=== PATIENT | female | born 1995 | race African-American/Black ===

== ENCOUNTER 2017-07-20 18:17 | Emergency (ER) | payer OTHER ==
--- NOTE | 2017-07-20 20:15 | RADIOLOGY REPORT (SQ) ---
EXAM DESCRIPTION: CHEST PA/LAT COMPLETED DATE/TIME: 07/20/2017 8:08 pm REASON FOR STUDY: cough/fever COMPARISON: None. EXAM PARAMETERS: NUMBER OF VIEWS: two views TECHNIQUE: Digital Frontal and Lateral radiographic views of the chest acquired. RADIATION DOSE: NA LIMITATIONS: none FINDINGS: LUNGS AND PLEURA: No opacities, masses or pneumothorax. No pleural effusion. MEDIASTINUM AND HILAR STRUCTURES: No masses or contour abnormalities. HEART AND VASCULAR STRUCTURES: Heart normal size. No evidence for failure. BONES: No acute findings. HARDWARE: None in the chest. OTHER: No other significant finding. IMPRESSION: NO SIGNIFICANT RADIOGRAPHIC FINDING IN THE CHEST. TECHNICAL DOCUMENTATION: JOB ID: [id number] [email or web address]- All Rights Reserved
[2017-07-20] MEDS ORDERED: DEXAMETHASONE SOD PHOS INJ 10 MG/1 ML VIAL IM ONE (22:35)
[2017-07-20] MEDS ORDERED: CEFTRIAXONE INJ 1000 MG VIAL IM ONE (22:35)
--- NOTE | 2017-07-20 22:38 | ER Document Report ---
ED Fever - General Chief Complaint: Fever Stated Complaint: FEVER,SORE THROAT,HEADACHE Time Seen by Provider: 07/20/17 18:55 Mode of Arrival: Ambulatory Information source: Patient, Relative Notes: Patient is a 22-year-old black female comes emergency room with a complaint of having a temperature of 103.5. Patient states she returned from [facility] 2 days ago where she was exposed people coughing on the bus. She spiked her fever and she went to the [facility] yesterday for a checkup. They could not find anything according to patient all was negative and sent her home on Tylenol Tessalon Perles and Mucinex. Patient states she is actually progressively getting worse 7 difficulty swallowing she is having uncontrolled cough congestion bilateral ear pain with left being greater than right. And runny nose. TRAVEL OUTSIDE OF THE [place] IN LAST 30 DAYS: No - HPI Onset: Other - 3 days Quality of pain: No pain Severity: Moderate Pain Level: 3 Context: Congestion, Cough, Nasal drainage Associated symptoms: Chills, Nonproductive cough, Earache, Fever, Headache, Nausea, Rhinnorhea, Sinus pain/drainage, Sweating Similar symptoms previously: Yes Recently seen / treated by doctor: Yes - Related Data Allergies/Adverse Reactions: No Known Allergies Allergy (Verified 07/20/17 18:19) Past Medical History - General Information source: Patient, Relative Last Menstrual Period: Today - Social History Smoking Status: Current Some Day Smoker Chew tobacco use (# tins/day): No Smoking Education Provided: No Frequency of alcohol use: Occasional Drug Abuse: None Family History: Reviewed & Not Pertinent Patient has suicidal ideation: No Patient has homicidal ideation: No Renal/ Medical History: Denies: Hx Peritoneal Dialysis Past Surgical History: Reports: Hx Section - Immunizations Hx Diphtheria, Pertussis, Tetanus Vaccination: Yes Review of Systems - Review of Systems Constitutional: Fever, Malaise, Weakness EENT: Ear pain, Nose congestion, Nose discharge, Sinus pressure, Sinus discharge , Throat pain, Difficulty swallowing Cardiovascular: No symptoms reported Respiratory: See HPI, Cough Gastrointestinal: No symptoms reported Genitourinary: No symptoms reported Female Genitourinary: No symptoms reported Musculoskeletal: No symptoms reported Skin: No symptoms reported Hematologic/Lymphatic: No symptoms reported Neurological/Psychological: No symptoms reported -: Yes All other systems reviewed and negative Physical Exam - Vital signs Vitals: Temp Pulse Resp BP Pulse Ox 100.0 F 103 H 20 129/72 H 99 07/20/17 18:40 07/20/17 18:40 07/20/17 18:40 07/20/17 18:40 07/20/17 18:40 Interpretation: Tachycardic - General General appearance: Alert, Other - Ill-appearing - HEENT Head: Normocephalic, Atraumatic Eyes: Normal External canal: Normal Tympanic membrane: Bulging Sinus: Maxillary, Tenderness, Other - Examination patient's head and upper airway showed nasal mucosa to be moderately erythematous and edematous with rhinorrhea noted in bilateral nares. Also note bilateral nasal congestion. Examination of bilateral TMs show them to be bulging with no fluid levels. External canals have some mild cerumen but TMs are visualized well. Patient also displays some mild maxillary sinus tenderness to palpation bilaterally frontal sinuses are negative at this time. Posterior pharynx shows moderate amount of erythema throughout with uvula midline and erythema. There is some mild exudate on the right side of tonsil the left is enlarged slightly but no exudate. The posterior pharynx also displays a large amount of yellowish green kind of drainage. Again the airways patent though. Nasal: Purulent discharge, Swelling Mouth/Lips: Normal Mucous membranes: Normal, Moist Pharynx: Other - See above. No: Normal, Blood in hypopharynx, Erythema, Exudate , Peritonsillar abscess, Post nasal drainage, Retropharyngeal abscess, Tonsillar hypertrophy, Uvular edema, Potential airway comprom. Neck: Other - See above. No: Normal, Anterior cervical chain, Posterior cervical chain, Brudzinski, Carotid bruit, Kernig's, Lymphadenopathy, Meningismus, Neck mass, Shotty nodes, Subcutaneous emphysema, Supple, Thyroid nodule, Thyromegally - Respiratory Respiratory status: No respiratory distress Chest status: Nontender Breath sounds: Normal. No: Decreased air movement, Nonproductive cough, Productive cough, Rales, Rhonchi, Stridor, Wheezing, Other - Cardiovascular Rhythm: Tachycardia Murmur: No - Abdominal Inspection: Normal Distension: No distension, Other Tenderness: Nontender Organomegaly: No organomegaly - Skin Skin Temperature: Warm Skin Moisture: Dry Skin Color: Normal, [place] Course - Vital Signs Vital signs: Temp Pulse Resp BP Pulse Ox 100.0 F 103 H 20 129/72 H 99 07/20/17 18:40 07/20/17 18:40 07/20/17 18:40 07/20/17 18:40 07/20/17 18:40 - Diagnostic Test Radiology reviewed: Reports reviewed - Negative chest x-ray - Transfer of Care Notes: 07/20/17 22:49 At this time patient's symptoms seem to worsen slightly do believe there is a pharyngitis minimally possibly a sinusitis makes him with it. We will place her on a steroid taper and some Sudafed and some antibiotics and have patient return to ER for recheck. Discharge - Discharge Clinical Impression: Pharyngitis, Fever Sinusitis Qualifiers: Sinusitis location: maxillary Chronicity: acute Recurrence: non-recurrent Qualified Code(s): J01.00 - Acute maxillary sinusitis, unspecified Disposition: HOME, SELF-CARE Instructions: Acetaminophen, Sore Throat ([facility]), Sinusitis ([facility]) Additional Instructions: Home rest. Medications prescribed. Tylenol alternating with Motrin every 4 hours throughout the night. Push fluids but avoid milk and dairy. Use nasal saline to keep the nose moist and secretions thin. Should you have any worsening symptoms or have any concerns return to ER for recheck. Prescriptions: Acetaminophen with Codeine [Tylenol #3 Tablet] 1 each PO Q4HP PRN #15 tablet PRN Reason: Acetaminophen with Codeine [Tylenol #3 Tablet] 1 each PO Q4HP PRN #15 tablet PRN Reason: Amox Tr/Potassium Clavulanate [Augmentin 875-125 Tablet] 1 tab PO BID 10 Days tablet Amoxicillin/Potassium Clav [Augmentin 875-125 Tablet] 1 each PO BID #20 tablet Prednisone [Sterapred Ds] 10 mg PO ASDIR PRN #1 tab.ds.pk PRN Reason: Pseudoephedrine HCl [Sudafed 12-Hour] 120 mg PO BID #20 tablet.er Referrals: SINDI MUIR DO [Primary Care Provider] - Follow up as needed
[2017-07-20 23:27] VITALS: BP 113/68
== END 2017-07-20 23:28 | disposition home or self-care (01) ==
LOC: ER 18:17
DX: J01.00 Acute maxillary sinusitis, unspecified (principal); J02.9 Acute pharyngitis, unspecified; R50.9 Fever, unspecified; R51 Headache; R05 Cough; R09.81 Nasal congestion; H92.03 Otalgia, bilateral; R09.89 Other specified symptoms and signs involving the circulatory and respiratory systems; F17.200 Nicotine dependence, unspecified, uncomplicated
CPT/HCPCS: 99283; 96372; 36415; 87070; 87880; 86308; 87804; 71020; J0696; J1100

== ENCOUNTER 2017-09-17 08:24 | Emergency (ER) | payer OTHER ==
--- NOTE | 2017-09-17 08:42 | ER Document Report ---
ED GI/ - General Chief Complaint: Abdominal Cramping Stated Complaint: STOMACH CRAMPING Time Seen by Provider: 09/17/17 08:41 Mode of Arrival: Ambulatory Information source: Patient Notes: Patient is a 22-year-old female who presents to the ER today for 2 months of intermittent abdominal cramping like she is "going to start my period" but then she does not. Patient has missed her menstrual cycle 1. Her last menstrual cycle being in July. Patient admits to feeling nauseated especially after eating food. Patient is not on any control. She is concerned she is today. She denies any vaginal bleeding or abnormal vaginal discharge. TRAVEL OUTSIDE OF THE [place] IN LAST 30 DAYS: No - Related Data Allergies/Adverse Reactions: No Known Allergies Allergy (Verified 07/20/17 18:19) Past Medical History - General Information source: Patient - Social History Smoking Status: Never Smoker Family History: Reviewed & Not Pertinent Renal/ Medical History: Denies: Hx Peritoneal Dialysis Past Surgical History: Reports: Hx Section - Immunizations Hx Diphtheria, Pertussis, Tetanus Vaccination: Yes Review of Systems - Review of Systems Constitutional: No symptoms reported EENT: No symptoms reported Cardiovascular: No symptoms reported Respiratory: No symptoms reported Gastrointestinal: See HPI Genitourinary: No symptoms reported Female Genitourinary: See HPI Musculoskeletal: No symptoms reported Skin: No symptoms reported Hematologic/Lymphatic: No symptoms reported Neurological/Psychological: No symptoms reported Physical Exam - Vital signs Vitals: Temp Pulse Resp BP Pulse Ox 98.6 F 76 16 116/71 94 09/17/17 08:33 09/17/17 08:33 09/17/17 08:33 09/17/17 08:33 09/17/17 08:33 - Notes Notes: PHYSICAL EXAMINATION: GENERAL: Well-appearing and in no acute distress. HEAD: Atraumatic, normocephalic. EYES: Pupils equal round and reactive to light, extraocular movements intact, sclera anicteric, conjunctiva are normal. ENT: ear canals without erythema or foreign body, TMs pearly turner with good bony landmarks, nares patent, oropharynx clear without exudates. Moist mucous membranes. NECK: Normal range of motion, supple without lymphadenopathy LUNGS: CTAB and equal. No wheezes rales or rhonchi. HEART: Regular rate and rhythm without murmurs ABDOMEN: Soft, no tenderness. No guarding, no rebound BACK: no vertebral tenderness, normal ROM GI/: no CVA tenderness EXTREMITIES: Normal range of motion, no pitting edema. No cyanosis. NEUROLOGICAL: Cranial nerves grossly intact. Normal sensory/motor exams. PSYCH: Normal mood, normal affect. SKIN: Warm, Dry, normal turgor, no rashes or lesions noted Course - Re-evaluation Re-evalutation: 09/17/17 11:02 test negative today through the serum. Lab work unremarkable today, urinalysis normal. - Vital Signs Vital signs: Temp Pulse Resp BP Pulse Ox 98.6 F 76 16 116/71 94 09/17/17 08:33 09/17/17 08:33 09/17/17 08:33 09/17/17 08:33 09/17/17 08:33 - Laboratory Result Diagrams: 09/17/17 08:55 09/17/17 08:55 Laboratory results interpreted by me: 09/17/17 09/17/17 08:55 10:25 Chloride 110 H Carbon Dioxide 20 L Lipase 318.3 H Urine Urobilinogen 2.0 H Discharge - Discharge Clinical Impression: Abdominal cramping, Nausea Condition: Stable Disposition: HOME, SELF-CARE Additional Instructions: Return immediately for any new or worsening symptoms. Follow up with primary care provider, call tomorrow to make followup appointment. Prescriptions: Ondansetron [Zofran Odt 4 mg Tablet] 1 - 2 tab PO Q4H PRN #30 tab.rapdis PRN Reason: For Nausea/Vomiting Forms: Return to Work
[2017-09-17 09:20] LABS: ABSOLUTE EOSINOPHILS # (AUTO) 0.1 10^3/uL (0.0-0.6); ABSOLUTE LYMPHOCYTES (AUTO) 2.2 10^3/uL (0.5-4.7); ABSOLUTE MONOCYTES (AUTO) 0.5 10^3/uL (0.1-1.4); BASOPHILS % (AUTO) 0.3 % (0-2); EOSINOPHILS % (AUTO) 1.9 % (0-6); HEMATOCRIT 39.3 % (36.0-47.0); HEMOGLOBIN 13.4 g/dL (12.0-15.5); LYMPHOCYTES % (AUTO) 37.6 % (13-45); MEAN CORPUSCULAR HEMOGLOBIN 28.9 pg (27.0-33.4); MEAN CORPUSCULAR VOLUME 85 fl (80-97); MONOCYTES % (AUTO) 8.2 % (3-13); PLATELET COUNT 237 10^3/uL (150-450); RED BLOOD COUNT 4.62 10^6/uL (3.72-5.28); RED CELL DISTRIBUTION WIDTH 13.7 % (11.5-14.0); TOTAL CELLS COUNTED % (AUTO) 100 %; WHITE BLOOD COUNT 5.8 10^3/uL (4.0-10.5)
[2017-09-17 09:42] LABS: ALANINE AMINOTRANSFERASE 28 U/L (9-52); ALBUMIN 3.9 g/dL (3.5-5.0); ALKALINE PHOSPHATASE 50 U/L (38-126); ANION GAP 10 (5-19); ASPARTATE AMINO TRANSFERASE 22 U/L (14-36); BILIRUBIN,DIRECT 0.2 mg/dL (0.0-0.4); BILIRUBIN,TOTAL 0.2 mg/dL (0.2-1.3); BLOOD UREA NITROGEN 16 mg/dL (7-20); CALCIUM 9.5 mg/dL (8.4-10.2); CARBON DIOXIDE 20 mmol/L (22-30); CHLORIDE 110 mmol/L (98-107); GLUCOSE 102 mg/dL (75-110); LIPASE 318.3 U/L (23-300); TOTAL PROTEIN 6.8 g/dL (6.3-8.2)
[2017-09-17 10:59] LABS: APPEARANCE,URINE SLIGHTLY-CLOUDY; BILIRUBIN,URINE NEGATIVE (NEGATIVE); COLOR,URINE YELLOW; GLUCOSE, URINE NEGATIVE (NEGATIVE); KETONES,URINE NEGATIVE (NEGATIVE); LEUKOCYTE ESTERASE,URINE NEGATIVE (NEGATIVE); NITRITE,URINE NEGATIVE (NEGATIVE); PROTEIN,URINE NEGATIVE (NEGATIVE); URINE SPECIFIC GRAVITY 1.027
[2017-09-17 11:16] VITALS: BP 110/70
== END 2017-09-17 11:15 | disposition home or self-care (01) ==
LOC: ER 08:24
DX: Z32.02 Encounter for pregnancy test, result negative (principal); R10.9 Unspecified abdominal pain; R11.0 Nausea
CPT/HCPCS: 36415; 80053; 81001; 83690; 84703; 85025; 99284

== ENCOUNTER 2017-10-25 18:37 | Emergency (ER) | payer OTHER ==
[2017-10-25] MEDS ORDERED: LORATADINE 10 MG TABLET PO ONE (21:01)
[2017-10-25] MEDS ORDERED: IBUPROFEN 800 MG TABLET PO ONE (21:01)
[2017-10-25] MEDS ORDERED: PSEUDOEPHEDRINE HCL 30 MG TABLET PO ONE (21:01)
[2017-10-25] MEDS ORDERED: GUAIFENESIN 600 MG TABLET.SA PO ONE (21:01)
[2017-10-25] MEDS ORDERED: PROCHLORPERAZINE MALEATE 10 MG TABLET PO ONE (21:01)
--- NOTE | 2017-10-25 21:06 | ER Document Report ---
HPI - HPI Patient complains to provider of: Cough cold congestion Onset: Other - 4 days Onset/Duration: Gradual, Persistent Quality of pain: Achy, Fullness, Pressure Pain Level: 4 Associated Symptoms: Body/muscle aches, Headache, Rhinnorhea, Sinus pain/ drainage Exacerbated by: Denies Relieved by: Denies Similar symptoms previously: Yes Recently seen / treated by doctor: No - ROS ROS below otherwise negative: Yes - CONSTITUTIONAL Constitutional: DENIES: Fever, Chills - EENT EENT: REPORTS: Nasal Drainage-Purulent, Congestion. DENIES: Sore Throat, Ear Pain, Eye problems - NEURO Neurology: REPORTS: Headache - Hx migraines. DENIES: Weakness, Vision blurred, Dizzinesss / Vertigo - CARDIOVASCULAR Cardiovascular: DENIES: Chest pain - RESPIRATORY Respiratory: REPORTS: Coughing. DENIES: Trouble Breathing - GASTROINTESTINAL Gastrointestinal: DENIES: Abdominal Pain, Black / Bloody Stools - URINARY Urinary: DENIES: Dysuria, Urgency, Frequency - REPRODUCTIVE Reproductive: DENIES: : - MUSCULOSKELETAL Musculoskeletal: DENIES: Extremity pain - DERM Skin Color: Normal Skin Problems: None Past Medical History - General Information source: Patient - Social History Smoking Status: Current Every Day Smoker Cigarette use (# per day): Yes Smoking Education Provided: Yes - Or minutes Family History: Reviewed & Not Pertinent Patient has suicidal ideation: No Patient has homicidal ideation: No - Past Medical History Cardiac Medical History: Reports: None Pulmonary Medical History: Reports: None EENT Medical History: Reports: None Neurological Medical History: Reports: None Endocrine Medical History: Reports: None Renal/ Medical History: Reports: None Malignancy Medical History: Reports: None GI Medical History: Reports: None Musculoskeltal Medical History: Reports None Skin Medical History: Reports None Psychiatric Medical History: Reports: None Traumatic Medical History: Reports: None Infectious Medical History: Reports: None Past Surgical History: Reports: Hx Section - Immunizations Hx Diphtheria, Pertussis, Tetanus Vaccination: Yes Vertical Provider Document - CONSTITUTIONAL Agree With Documented VS: Yes - INFECTION CONTROL TRAVEL OUTSIDE OF THE [place] IN LAST 30 DAYS: No - HEENT HEENT: Atraumatic, Normocephalic, PERRLA. negative: Normal ENT Exam - . Nasal drainage postnasal drip, Pharyngeal Exudate, Pharyngeal Tenderness, Pharyngeal Erythema, Tympanic Membrane Red, Tympanic Membrane Bulging - NECK Neck: Normal Inspection, Supple - RESPIRATORY Respiratory: Breath Sounds Normal, No Respiratory Distress, Chest Non-Tender - CARDIOVASCULAR Cardiovascular: Regular Rate, Regular Rhythm, No Murmur - MUSCULOSKELETAL/EXTREMETIES Musculoskeletal/Extremeties: MAEW, FROM, Non-Tender - NEURO Level of Consciousness: Awake, Alert, Appropriate - DERM Integumentary: Warm, Dry, No Rash Course - Vital Signs Vital signs: Temp Pulse Resp BP Pulse Ox 98.8 F 81 18 112/76 100 10/25/17 19:10 10/25/17 19:10 10/25/17 19:10 10/25/17 19:10 10/25/17 19:10 Discharge - Discharge Clinical Impression: Headache Qualifiers: Headache type: unspecified Headache chronicity pattern: chronic headache Intractability: not intractable Qualified Code(s): R51 - Headache Upper respiratory infection Qualifiers: URI type: unspecified URI Qualified Code(s): J06.9 - Acute upper respiratory infection, unspecified Condition: Stable Disposition: HOME, SELF-CARE Additional Instructions: HEADACHE: The physician does not feel that the headache you are experiencing has a serious underlying cause. Most headaches are due to emotional stress, with resultant muscle tension (tension headache). Occasionally, headaches are secondary to changes in the blood vessels of the scalp (vascular headache and migraine headache). Sometimes, a headache is the first symptom of another developing illness, such as a viral infection. You have no evidence of stroke, bleeding, meningitis, or other serious cause of your headache. The treatment of headaches varies with the severity and cause of the pain. Not all headaches need pain shots. In fact, there is evidence that using narcotics for headaches may make them worse in the long run. The physician will determine the therapy that's in your best interest. If you develop a fever, if the headache is different from any you've previously experienced, or if the headache progressively worsens, then call your physician at once or go to the emergency room. USE OF DIPHENHYDRAMINE: Diphenhydramine (Benadryl) is an antihistamine and has been recommended to help treat your headache and to prevent side effects of other medications used to treat headaches. The medication can be repeated four times daily. Age Elixir (12.5 mg/tsp) 25 mg pill adult 1-2 tabs Antihistamines may cause drowsiness, especially with the first dose. Do not operate machinery or drive while under the effects of the medication. Do not combine the medication with alcohol, or with any other medication without talking to your doctor. COMPAZINE FOR HEADACHE: You have received therapy for headaches, using Compazine. This treatment is dramatically successful in relieving the headache in about 50 percent of cases. When it works, it provides a rapid method of eliminating the headache without resorting to narcotics (and the problems associated with them). Most patients still feel fully alert after the Compazine, but others may be slightly drowsy. It's best not to drive or work with machinery for six to eight hours. Do not take alcohol or other medication unless you discuss it with the doctor. If you develop tightness and spasms in your muscles, especially the neck and tongue, you should return. This is a side effect which can be treated. UPPER RESPIRATORY ILLNESS: You have a viral infection of the respiratory passages -- a "cold." This common infection causes nasal congestion, drainage, and often sore throat and cough. It is highly contagious. The disease usually lasts about 10 to 14 days. There is no "cure" for the viral infection -- it must run its course. If there is a complication, such as bacterial infection in the nose, sinuses, middle ear, or bronchial tubes, antibiotics may be required. The antibiotics won't affect the virus. Drink plenty of fluids. A humidifier may help. An expectorant medication or decongestant may make you more comfortable. Use acetaminophen or ibuprofen for fever or aches. See the doctor if fever persists over two days, if there is any significant worsening of your symptoms, or if you simply fail to improve as expected. You will treated with Claritin 10 mg, Sudafed 30 mg, Mucinex 600 mg, ibuprofen 800 mg, and Compazine 10 mg, for your upper respiratory infection and headache. The Compazine ibuprofen and Benadryl will help your headache at home. The Claritin and Sudafed Mucinex are for your cough and cold symptoms. You also should try Flonase 1 spray each nostril as per box instructions. DECONGESTANT MEDICATION: A decongestant medicine has been suggested. Often this medicine is combined in the same tablet with an antihistamine or expectorant. This type of medicine is helpful in treating a bad cold or sinus condition, as well as in treatment of the nasal congestion of hay fever. It is not of much benefit for lung infections. Decongestant medicines are related to stimulants. They can cause an increase in blood pressure and heart rate. Persons with heart disease and high blood pressure should not take decongestants without discussing this with the physician. If you develop palpitations, chest pain, headache, or tremors, stop the medicine and consult your physician. USE OF ACETAMINOPHEN (Tylenol): Acetaminophen may be taken for pain relief or fever control. It's much safer than aspirin, offering a wider range of "safe" dosages. It is safe during . Some brand names are Tylenol, Panadol, Datril, Anacin 3, Tempra, and Liquiprin. Acetaminophen can be repeated every four hours. The following are maximum recommended dosages: >89 pounds or adults 650 mg to 900 mg Acetaminophen can be repeated every four hours. Maximum dose not to exceed 4000 mg a day. SMOKING: If you smoke, you should stop smoking. The tar and chemicals in cigarette smoke are harmful. Smoking has been shown to cause: emphysema chronic bronchitis lung cancer mouth and throat cancer stomach and pancreas cancer premature aging defects In addition, smoking increases ear and lung infections in children of smokers. FOLLOW-UP CARE: If you have been referred to a physician for follow-up care, call the physician s office for an appointment as you were instructed or within the next two days. If you experience worsening or a significant change in your symptoms, notify the physician immediately or return to the Emergency Department at any time for re-evaluation. Prescriptions: Prochlorperazine Maleate [Compazine 10 mg Tablet] 10 mg PO ASDIR PRN #10 tablet PRN Reason: Forms: Smoking Cessation Education, Return to Work
[2017-10-25 21:35] VITALS: BP 110/72
== END 2017-10-25 21:35 | disposition home or self-care (01) ==
LOC: ER 18:37
DX: J06.9 Acute upper respiratory infection, unspecified (principal); R51 Headache; R05 Cough; R09.81 Nasal congestion; M79.1 Myalgia; J34.89 Other specified disorders of nose and nasal sinuses; F17.210 Nicotine dependence, cigarettes, uncomplicated
CPT/HCPCS: 99283; S0183

== ENCOUNTER 2017-12-26 16:02 | Emergency (ER) | payer OTHER ==
[2017-12-26 16:12] VITALS: BP 118/63
[2017-12-26] MEDS ORDERED: ONDANSETRON 4 MG TAB.RAPDIS PO ONE (16:36)
[2017-12-26] MEDS ORDERED: DICYCLOMINE HCL 20 MG TABLET PO ONE (16:36)
--- NOTE | 2017-12-26 16:41 | ER Document Report ---
ED General - General Chief Complaint: Weak, RODRIGUEZ, chills, abdominal pain Stated Complaint: WEAKNESS Time Seen by Provider: 12/26/17 16:24 Notes: 22-year-old female here with complaints of generalized body aches, severe nausea , and abdominal cramping that started early this morning. She states that she ate some olive garden chicken pasta (several hours prior to symptom onset) that sat in her car all day yesterday in the heat. She was the only one that ate the food. She does not have any sick contacts. She has not tried anything for the symptoms other than a suppository which caused her to start having diarrhea. Denies fevers chills dysuria cough congestion runny nose. TRAVEL OUTSIDE OF THE [place] IN LAST 30 DAYS: No - Related Data Allergies/Adverse Reactions: No Known Allergies Allergy (Verified 10/25/17 18:40) Past Medical History - Social History Smoking Status: Current Every Day Smoker Chew tobacco use (# tins/day): No Frequency of alcohol use: Occasional Drug Abuse: None Family History: Reviewed & Not Pertinent Patient has suicidal ideation: No Patient has homicidal ideation: No Renal/ Medical History: Denies: Hx Peritoneal Dialysis Past Surgical History: Reports: Hx Section - Immunizations Hx Diphtheria, Pertussis, Tetanus Vaccination: Yes Review of Systems - Review of Systems Notes: See history of present illness for pertinent positive review of systems; otherwise all review of systems have been reviewed and are negative Physical Exam - Vital signs Vitals: Temp Pulse Resp BP Pulse Ox 97.9 F 106 H 16 118/63 100 12/26/17 16:10 12/26/17 16:10 12/26/17 16:10 12/26/17 16:10 12/26/17 16:10 - Notes Notes: PHYSICAL EXAMINATION: GENERAL: Well-appearing and in no acute distress. HEAD: Atraumatic, normocephalic. EYES: Pupils equal round and reactive to light, extraocular movements intact, sclera anicteric, conjunctiva are normal. ENT: nares patent, oropharynx clear without exudates. Moist mucous membranes. NECK: Normal range of motion, supple without lymphadenopathy LUNGS: CTAB and equal. No wheezes rales or rhonchi. HEART: Regular rate (not tachycardic, heart rate low 90s) and regular rhythm without murmurs ABDOMEN: Soft, no tenderness. No facial grimacing/wincing upon palpation. No guarding, no rebound. EXTREMITIES: Normal range of motion, no pitting edema. No cyanosis. NEUROLOGICAL: Cranial nerves grossly intact. Normal sensory/motor exams. PSYCH: Normal mood, normal affect. SKIN: Warm, Dry, normal turgor, no rashes or lesions noted Course - Re-evaluation Re-evalutation: 12/26/17 16:40 MEDICAL DECISION MAKING: Concern for gastrointestinal infection, most likely viral, versus food poisoning Dose of Zofran Bentyl here and prescription for same Instructed patient on fever control with Tylenol and/or (if applicable) Motrin Also discussed keeping hydrated with water or Gatorade/Pedialyte Instructed follow-up PCP next day or few Patient understands and agrees to the plan of care - Vital Signs Vital signs: Temp Pulse Resp BP Pulse Ox 97.9 F 94 16 118/63 100 12/26/17 16:10 12/26/17 16:34 12/26/17 16:10 12/26/17 16:10 12/26/17 16:10 Discharge - Discharge Clinical Impression: Nausea, Body aches Condition: Good Disposition: HOME, SELF-CARE Additional Instructions: You were seen in the emergency department at [facility]. Based on your symptoms, you most likely have food poisoning versus viral gastroenteritis. Use the prescribed Zofran for nausea/vomiting. Use the prescribed Bentyl for abdominal cramping/pains. Stay hydrated with water or Gatorade. Please followup with your primary physician in the next few days for further management/evaluation. Please return to the emergency department for worsening of symptoms or any symptom that you deem to be concerning or life- threatening. Thank you for allowing us to be part of your care. Prescriptions: Dicyclomine HCl [Bentyl 20 mg Tablet] 20 mg PO QID #20 tablet Ondansetron [Zofran Odt 4 mg Tablet] 1 tab PO Q4H PRN #15 tab.rapdis PRN Reason: For Nausea/Vomiting
== END 2017-12-26 16:55 | disposition home or self-care (01) ==
LOC: ER 16:02
DX: R11.0 Nausea (principal); M79.1 Myalgia; R53.1 Weakness; R51 Headache; R10.9 Unspecified abdominal pain; F17.200 Nicotine dependence, unspecified, uncomplicated
CPT/HCPCS: 99284; J3490; S0119

== ENCOUNTER 2018-02-03 13:38 | Emergency (ER) | payer OTHER ==
[2018-02-03 13:54] VITALS: BP 110/76
[2018-02-03] MEDS ORDERED: OXYCODONE-ACETAMINOPHEN 5-325 MG TABLET PO ONE (14:45)
[2018-02-03] MEDS ORDERED: NAPROXEN 250 MG TABLET PO ONE (14:45)
[2018-02-03] MEDS ORDERED: CYCLOBENZAPRINE HCL 10 MG TABLET PO ONE (14:45)
--- NOTE | 2018-02-03 14:49 | ER Document Report ---
ED Headache - General Chief Complaint: Headache Stated Complaint: HEADACHE,NAUSEA Time Seen by Provider: 02/03/18 14:40 Mode of Arrival: Ambulatory Information source: Patient, Relative, [facility] Records Notes: 23-year-old female patient reports onset last night around 8 PM of pain to her left neck causing spasms, headache, photosensitivity and some nausea. He said she feels like she may have pulled a muscle in her neck earlier. TRAVEL OUTSIDE OF THE [place] IN LAST 30 DAYS: No - Related Data Allergies/Adverse Reactions: No Known Allergies Allergy (Verified 02/03/18 13:39) Past Medical History - General Information source: Patient, Relative, [facility] Records - Social History Smoking Status: Current Every Day Smoker Cigarette use (# per day): Yes Chew tobacco use (# tins/day): No Smoking Education Provided: No Frequency of alcohol use: Occasional Drug Abuse: None Lives with: Family, Spouse/Significant other Family History: Reviewed & Not Pertinent Patient has suicidal ideation: No Patient has homicidal ideation: No - Medical History Medical History: Negative Past Surgical History: Reports: Hx Section - x1 - Immunizations Hx Diphtheria, Pertussis, Tetanus Vaccination: Yes Review of Systems - Review of Systems Constitutional: No symptoms reported EENT: No symptoms reported Cardiovascular: No symptoms reported Respiratory: No symptoms reported Gastrointestinal: No symptoms reported Genitourinary: No symptoms reported Female Genitourinary: Last menstrual period - 01-06-18 Musculoskeletal: No symptoms reported Skin: No symptoms reported Hematologic/Lymphatic: No symptoms reported Neurological/Psychological: No symptoms reported Physical Exam - Vital signs Vitals: Temp Pulse Resp BP Pulse Ox 98.5 F 87 16 110/76 99 02/03/18 13:52 02/03/18 13:52 02/03/18 13:52 02/03/18 13:52 02/03/18 13:52 - General General appearance: Alert In distress: Moderate - HEENT Head: Normocephalic, Atraumatic Eyes: Normal Pupils: PERRL Neck: Supple - Patient is able to place her chin on her chest., Other - Left posterior cervical and lateral cervical muscle region is exquisitely tender to palpate, made worse with rotating the head to the left. The left trapezius muscle is also quite tender to palpate. - Respiratory Respiratory status: No respiratory distress - Cardiovascular Rhythm: Regular - Abdominal Inspection: Normal - Back Back: Normal - Extremities General upper extremity: Normal inspection General lower extremity: Normal inspection - Neurological Neuro grossly intact: Yes - Psychological Associated symptoms: Normal affect, Normal mood - Skin Skin Temperature: Warm Skin Moisture: Dry Skin Color: Normal Course - Vital Signs Vital signs: Temp Pulse Resp BP Pulse Ox 98.5 F 87 16 110/76 99 02/03/18 13:52 02/03/18 13:52 02/03/18 13:52 02/03/18 13:52 02/03/18 13:52 Discharge - Discharge Clinical Impression: Torticollis Headache Qualifiers: Headache type: unspecified Headache chronicity pattern: acute headache Intractability: not intractable Qualified Code(s): R51 - Headache Condition: Stable Disposition: HOME, SELF-CARE Additional Instructions: Torticollis You have torticollis, often called "wry neck." This is due to spasm of neck muscles -- locking the neck into a crooked position. Many different problems can lead to torticollis, such as a minor injury, sleeping with tension on the neck, or inflammation in the glands of the neck. Torticollis is usually treated with heat to relax the neck muscles, but the physician may recommend cold packs if a minor injury is suspected as the cause. Muscle relaxing and antiinflammatory medicine are often prescribed. You may need a neck collar to support your head. Improvement is usually rapid. Usually, the neck can be moved fully within two days, although some pain may persist for a few weeks. Call the doctor at once if you worsen, or if you develop high fever, severe headache, numbness or weakness, or other alarming symptoms. Take medication as prescribed. Take ibuprofen every 8 hours. Try moist heat or cold packs to the painful neck muscles. Rest in a cool quiet place today. Follow up with your doctor tomorrow if not improving. RETURN TO THE EMERGENCY ROOM IF ANY NEW OR WORSENING SYMPTOMS. Prescriptions: Cyclobenzaprine HCl [Flexeril 5 mg Tablet] 5 mg PO TID PRN #15 tablet PRN Reason: Hydrocodone/Acetaminophen [Elizabeth 5-325 mg Tablet] 1 tab PO Q4 PRN #15 tablet PRN Reason: Forms: Return to Work
== END 2018-02-03 14:59 | disposition home or self-care (01) ==
LOC: ER 13:38
DX: M43.6 Torticollis (principal); R51 Headache; M54.2 Cervicalgia; R25.2 Cramp and spasm; R11.0 Nausea; F17.210 Nicotine dependence, cigarettes, uncomplicated
CPT/HCPCS: 99283

== ENCOUNTER 2018-02-22 00:18 | Emergency (ER) | payer OTHER ==
--- NOTE | 2018-02-22 01:10 | ER Document Report ---
ED Headache - General Chief Complaint: Headache Stated Complaint: HEADACHE Time Seen by Provider: 02/22/18 00:57 Mode of Arrival: Ambulatory Information source: Patient Notes: Patient is a 23 year old female who presents to the ER today for neck spasm on the left side of her neck after sleeping on it wrong a couple of days ago. Patient was seen for this a few weeks ago as well. Patient states that it causes a pain up the back of her head to the top of her head and gives her headache. Patient admits that whatever they gave her in the ER helped last time but whenever they sent her home with did not help. She denies any nausea or vomiting, blurred vision. She has no history of migraines. She has no injury. She denies any numbness or tingling. TRAVEL OUTSIDE OF THE [place] IN LAST 30 DAYS: No - Related Data Allergies/Adverse Reactions: No Known Allergies Allergy (Verified 02/03/18 13:39) Past Medical History - General Information source: Patient - Social History Smoking Status: Unknown if Ever Smoked Family History: Reviewed & Not Pertinent Renal/ Medical History: Denies: Hx Peritoneal Dialysis Past Surgical History: Reports: Hx Section - x1 - Immunizations Hx Diphtheria, Pertussis, Tetanus Vaccination: Yes Review of Systems - Review of Systems Constitutional: No symptoms reported EENT: No symptoms reported Cardiovascular: No symptoms reported Respiratory: No symptoms reported Gastrointestinal: No symptoms reported Genitourinary: No symptoms reported Female Genitourinary: No symptoms reported Musculoskeletal: No symptoms reported Skin: No symptoms reported Hematologic/Lymphatic: No symptoms reported Neurological/Psychological: See HPI Physical Exam - Notes Notes: PHYSICAL EXAMINATION: GENERAL: Laying in a dark room, obviously uncomfortable, but in no acute distress. HEAD: Atraumatic, normocephalic. EYES: Pupils equal round and reactive to light, extraocular movements intact, sclera anicteric, conjunctiva are normal. ENT: ear canals without erythema or foreign body, TMs pearly turner with good bony landmarks, nares patent, oropharynx clear without exudates. Moist mucous membranes. NECK: Normal range of motion but with pain on rotating to the left, tender to left trapezius,, supple without lymphadenopathy LUNGS: CTAB and equal. No wheezes rales or rhonchi. HEART: Regular rate and rhythm without murmurs EXTREMITIES: Normal range of motion, no pitting edema. No cyanosis. NEUROLOGICAL: Cranial nerves grossly intact. Normal sensory/motor exams. PSYCH: Normal mood, normal affect. SKIN: Warm, Dry, normal turgor, no rashes or lesions noted Discharge - Discharge Clinical Impression: Tension headache Condition: Stable Disposition: HOME, SELF-CARE Instructions: Use of Diphenhydramine Additional Instructions: Return immediately for any new or worsening symptoms. Follow up with primary care provider, call tomorrow to make followup appointment. Prescriptions: Ibuprofen [Motrin 800 mg Tablet] 800 mg PO Q8H PRN #30 tab PRN Reason: Methocarbamol [Robaxin 500 mg Tablet] 500 mg PO QID #20 tablet Forms: Return to Work
[2018-02-22] MEDS ORDERED: METHOCARBAMOL 500 MG TABLET PO ONE (01:12)
[2018-02-22] MEDS ORDERED: IBUPROFEN 800 MG TABLET PO ONE (01:12)
== END 2018-02-22 01:28 | disposition home or self-care (01) ==
LOC: ER 00:18
DX: G44.209 Tension-type headache, unspecified, not intractable (principal); R25.2 Cramp and spasm
CPT/HCPCS: 99283

== ENCOUNTER 2018-03-06 06:43 | Emergency (ER) | payer OTHER ==
[2018-03-06] MEDS ORDERED: NAPROXEN 250 MG TABLET PO ONE (08:07)
[2018-03-06] MEDS ORDERED: CYCLOBENZAPRINE HCL 10 MG TABLET PO ONE (08:07)
--- NOTE | 2018-03-06 08:13 | ER Document Report ---
ED General - General Chief Complaint: Neck Pain >24hrs old Stated Complaint: NECK PAIN Time Seen by Provider: 03/06/18 07:50 TRAVEL OUTSIDE OF THE [place] IN LAST 30 DAYS: No - HPI Notes: 23-year-old female presents with neck pain. Patient describes left-sided posterior lateral neck pain, off and on for last several months. Ongoing this time for several weeks. Nonradiating. No numbness or tingling. No direct trauma. Worse with motion, especially turning the left. No other modifying factors, no other associated symptoms, no other provocative or palliative factors. - Related Data Allergies/Adverse Reactions: No Known Allergies Allergy (Verified 02/03/18 13:39) Past Medical History - Social History Smoking Status: Unknown if Ever Smoked Chew tobacco use (# tins/day): No Frequency of alcohol use: None Family History: Reviewed & Not Pertinent Patient has suicidal ideation: No Patient has homicidal ideation: No - Medical History Notes: Intermittent chronic neck pain Renal/ Medical History: Denies: Hx Peritoneal Dialysis Past Surgical History: Reports: Hx Section - x1 - Immunizations Hx Diphtheria, Pertussis, Tetanus Vaccination: Yes Review of Systems - Review of Systems Notes: Review of systems as in history of present illness, otherwise no significant headache, chest pain, abdominal pain. Physical Exam - Vital signs Vitals: Resp BP Pulse Ox 16 125/88 H 100 03/06/18 08:01 03/06/18 08:01 03/06/18 08:01 - Notes Notes: General: Well devloped, no acute distress. HEENT: Normocephalic, atraumatic. Pupils equal round reactive to light. Mucosa moist. No JVD. Neck: Left paracervical tenderness posterior laterally, mild spasm. Chest: No trauma, normal excursion. Respiratory: Good air exchange, normal excursion. Cardiac: Regular rhythm Abdomen: Soft, benign. Nondistended. Back: No asymmetry or gross abnormality. Motor: Grossly normal power and tone. Neurologic: Alert, nonfocal. Vascular: Well perfused Skin: No petechiae or purpura Course - Re-evaluation Re-evalutation: 03/06/18 11:05 Appearing female clear musculoskeletal neck spasm and tenderness. No high-risk features, no evidence of meningitis or vascular emergency. Will treat with naproxen, Flexeril, outpatient follow-up. - Vital Signs Vital signs: Temp Pulse Resp BP Pulse Ox 98.4 F 88 16 124/88 H 100 03/06/18 08:24 03/06/18 08:24 03/06/18 08:24 03/06/18 08:24 03/06/18 08:24 Discharge - Discharge Clinical Impression: Neck muscle spasm Condition: Good Disposition: HOME, SELF-CARE Instructions: Muscle Strain ([facility]) Prescriptions: Cyclobenzaprine HCl [Flexeril 10 mg Tablet] 10 mg PO TIDP PRN #15 tab NS PRN Reason: Naproxen [Naprosyn] 500 mg PO Q12 PRN #10 tablet PRN Reason:
[2018-03-06 08:25] VITALS: BP 124/88
== END 2018-03-06 08:25 | disposition home or self-care (01) ==
LOC: ER 06:43
DX: M62.838 Other muscle spasm (principal); M54.2 Cervicalgia
CPT/HCPCS: 99283